=== PATIENT | male | born 1980 | race Two or more races ===

== ENCOUNTER 2022-08-07 04:27 | Emergency (ER) | payer OTHER ==
[~2022-08-07] VITALS: Ht 175.3 cm; Wt 97.5 kg
[2022-08-07] MEDS ORDERED: NORFLEX100MG PO (05:49)
[2022-08-07] MEDS ORDERED: NABUMETONE750 MG PO (05:49)
== END 2022-08-07 06:01 ==
LOC: ER 04:27
DX: S47.2XXA Crushing injury of left shoulder and upper arm, initial encounter (principal); V93.6 Machinery accident on board watercraft; Y93.14 Activity, water aerobics and water exercise; Y92.89 Other specified places as the place of occurrence of the external cause; Y99.8 Other external cause status